=== PATIENT | male | born 1955 | race Caucasian/White ===

== ENCOUNTER 2021-09-28 17:49 | Emergency (ER) | payer MEDICARE, SELFPAY ==
--- NOTE | ~2021-09-28 | CT_ITS ---
EXAMINATION: CT brain wo con DATE: 09/28/2021 19:14 INDICATION: Altered mental state. Confusion. Weakness for one week. TECHNIQUE: Computed tomography (CT) of the head was performed without intravenous contrast. The mA wa s adjusted according to patient size. Iterative reconstruction technique was employed. Exam dose: 68 1.00 mGy-cm total exam DLP. COMPARISON: None FINDINGS: Bilateral vertebral artery, basilar artery and bilateral carotid siphon internal carotid ar rosina calcifications. No intracranial mass lesion or hemorrhage or cerebrovascular accident. No midline shift or mass effec t. Normal ventricular size. No subdural or epidural hematoma. No fracture or bone destruction of the cranial vault. Mastoid air cells and included paranasal sinuses are normally developed and aerated. IMPRESSION: Cerebral atherosclerosis No acute intracranial finding Reviewed, dictated and finalized at [facility]. Reviewed, dictated and finalized at [facility].
[2021-09-28 17:48] VITALS: BP 167/88; PULSE 94; RESP 16; TEMP 36.8; O2SAT 98
--- NOTE | 2021-09-28 18:16 | ECG_ITS ---
Measurements Intervals [place] Rate: 93 P: 24 MS: 149 QRS: 8 QRSD: 93 T: 36 QT: 351 QTc: 438 Interpretive Statements SINUS RHYTHM BASELINE ARTIFACT- I, II, III, AVR, AVF, V2-V6 NORMAL ECG Electronically Signed On 09-28-2021 20:33:18 CDT by Israel Fraser D.O.
--- NOTE | 2021-09-28 18:28 | ED.WEAKNESS ---
HPI - Weakness General Chief complaint: Weakness Stated complaint: WEAKNESS Time Seen by Provider: 09/28/21 17:58 Source: patient, EMS, RN notes reviewed and old records reviewed History of Present Illness HPI Narrative: Patient was of her by [facility] for a wellness check. Patient is in the middle of a divorce his had not heard from him in a while called [facility] catheter patient evaluated. Patient reports he has been drinking the past couple days denies any SI or HI. Reports he is here for dehydration. He does report he has been drinking wine the past couple days denies any nausea or vomiting denies any recent fevers, cough, congestion denies any focal areas of pain Related Data Home Medications Medication Instructions Recorded Confirmed amlodipine 5 mg PO DAILY 09/28/21 atorvastatin 40 mg PO DAILY 09/28/21 benzonatate 100 mg PO TID PRN 09/28/21 chlordiazepoxide mg PO 09/28/21 clonazepam 0.5 mg PO DAILY PRN 09/28/21 levothyroxine 50 mcg PO DAILY 09/28/21 ondansetron HCl [Zofran] 4 mg PO Q6H 09/28/21 tamsulosin 0.4 mg PO DAILY 09/28/21 Allergies Allergy/AdvReac Type Severity Reaction Status Date / Time Penicillins Allergy Unknown Verified 03/11/19 12:25 Review of Systems Review of Systems: CONSTITUTIONAL: Denies fever, chills, or sweats. EYES: Denies visual changes, redness, or discharge. ENT: Denies rhinorrhea, congestion, sore throat, or otalgia. CARDIOVASCULAR: Denies chest pain, palpitations, or edema. RESPIRATORY: Denies cough or dyspnea. GASTROINTESTINAL: Denies abdominal pain, nausea, vomiting, or diarrhea. GENITOURINARY: Denies dysuria or hematuria. SKIN: Denies rash or itching. MUSCULOSKELETAL: Denies back pain, joint pain, or myalgia. NEUROLOGIC: Denies headache, numbness, dizziness, or weakness. PSYCHIATRIC: Denies anxiety or depression. ROS unobtainable: Yes unobtainable due to mental status (ROS may be limited as patient appears altered possibly related EtOH) PMFSH Past Medical History Medical History Hypertension Social History Social History Alcohol intake: current Exam Narrative: GENERAL: Well-appearing, well-nourished, and in no acute distress. HEAD: Normocephalic, atraumatic. EYES: PERRLA and EOMI. ENT: Nares clear, no rhinorrhea or epistaxis. Mucous membranes moist. NECK: Supple. No masses. No JVD CHEST: Clear to auscultation. No respiratory distress. No wheezes rales or rhonchi HEART: Regular rate and rhythm. No murmur heard. Normal peripheral pulses. ABDOMEN: Soft, nontender, nondistended, normal active bowel sounds. EXTREMITIES: Normal range of motion. No edema. SKIN: Warm, dry, no rash. NEURO: No focal deficits. Alert and oriented x2, PSYCH: Normal mood and affect. Course Reevaluation(s) Reevaluation #1: Patient is resting comfortably Date: 09/28/21 Time: 23:29 Reevaluation #2: Patient's mental status is clearing however continues to slur her words. He reportedly has a history of alcohol abuse Date: 09/28/21 Time: 23:55 Reevaluation #3: Reviewed alcohol returns patient is now alert and oriented x4 denies any suicidal ideation or homicidal ideation. Reports he sees a counselor for his alcohol abuse he was able to prescribe Librium and medications he has an appointment tomorrow to be evaluated by them. Date: 09/29/21 Time: 01:21 Vital Signs Vital signs: Vital Signs Temperature 36.8 C 09/28/21 17:48 Pulse Rate 94 09/28/21 17:48 Respiratory Rate 16 09/28/21 17:48 Blood Pressure 167/88 H 09/28/21 17:48 Pulse Oximetry 98 09/28/21 17:48 Temperature 36.8 C 09/28/21 17:48 Pulse Rate 104 H 09/29/21 01:10 Respiratory Rate 17 09/29/21 01:10 Blood Pressure 174/90 H 09/29/21 01:10 Pulse Oximetry 95 09/29/21 01:10 MDM - Weakness MDM Narrative Medical decision making narrative: H&P as above, vss, pt looks clinically well, exam initia
[2021-09-28 18:44] LABS: Basophils Percent Auto 0.7 % (0.2-1.2); Eosinophils Absolute Auto 0.1 K/mm3 (0-0.3); Hematocrit 42.6 % (42.0-52.0); Hemoglobin 14.6 g/dL (14.0-18.0); Immature Granulocyte Absolute 0.01 K/mm3 (0.00-0.031); Immature Granulocyte Percent A 0.2 % (0-0.5); Lymphocytes Absolute Auto 1.93 K/mm3 (0.9-3.2); Mean Corpuscular HGB Conc 34.3 g/dl (32-36); Mean Corpuscular Hemoglobin 32.7 pg (26-34); Mean Corpuscular Volume 95.3 fl (80-100); Mean Platelet Volume 9.1 fl (7.4-10.4); Monocytes Absolute Auto 0.5 K/mm3 (0.1-0.6); Monocytes Percent Auto 10.5 % (2.6-8.5); Neutrophils Absolute Auto 2.1 K/mm3 (1.3-6.7); Neutrophils Percent Auto 44.6 % (45.5-73.1); Platelet Count Result 193 k/mm3 (150-375); Red Blood Count 4.47 M/mm3 (4.6-6.20); Red Cell Distribution Width 14.3 % (11.5-14.5); White Blood Count 4.6 K/mm3 (4.5-10.0)
[2021-09-28 19:00] LABS: Acetaminophen < 10 ug/mL (10-30); Ammonia < 9 umol/L (9-30); Ethanol 176 mg/dL (<10); Salicylate < 1.0 mg/dL (2-20)
[2021-09-28 19:01] LABS: Alanine Aminotransferase 157 U/L (4-50); Albumin Level 4.5 g/dL (3.5-5.1); Alkaline Phosphatase 80 U/L (38-126); Anion Gap 10 mmol/L (8-16); Aspartate Amino Transferase 146 U/L (17-59); Bilirubin,Total 0.9 mg/dL (0.2-1.3); Blood Urea Nitrogen 10 mg/dL (9-20); Carbon Dioxide 28 mmol/L (22-30); Chloride 105 mmol/L (98-107); Estimated CRCL calculation 102 ml/min; Estimated Glomerular Filt Rate > 60; Glucose 89 mg/dL (65-110); Potassium 4.2 mmol/L (3.4-5.0); Sodium 143 mmol/L (137-145)
[2021-09-28] MEDS: THIAMINE HCL INJ 100 MG, FOLIC ACID INJ 1 MG, MULTIVITAMINS-12 INJ VIAL 1 5 ML, MULTIVI... IV CONT (19:18)
--- NOTE | 2021-09-28 20:36 | PC.NURSE ---
Patient's brother will be taking patient home. Patient's brother is Jorge and can be reached at [phone]
[2021-09-28 20:53] VITALS: BP 168/92; PULSE 106; RESP 18; O2SAT 98
[2021-09-28 21:13] LABS: Add Urine Microscopic? YES; Appearance Urine Clear (Clear); Bilirubin Urine Negative (Negative); Blood Urine 1+ (Negative); Color Urine Yellow (Yellow); Glucose Urine UA Negative (Negative); Ketones Urine Trace mg/dL (Negative); Leukocyte Esterase Ur Negative LEU/UL (Negative); Nitrate Urine Negative (Negative); Protein Urine Negative (Negative); RBC Urine 0-2 /hpf (0-2); Specific Grav Ur 1.005 (1.001-1.035); Urobilinogen Urine Negative mg/dL (<2.0); WBC Urine 0-3 /hpf
[2021-09-28 21:28] LABS: Amphetamine Screen Urine Negative (Negative); Barbiturate Screen Urine Negative (Negative); Benzodiazepines Screen Urine Positive (Negative); Cannabinoid Screen Urine Negative (Negative); Cocaine Screen Urine Negative (Negative); Methadone Screen Urine Negative (Negative); Opiate Screen Urine Negative (Negative); Phencyclidine Screen Urine Negative (Negative)
[2021-09-28 22:09] VITALS: BP 145/83; PULSE 97; RESP 18; O2SAT 97
[2021-09-28 23:30] VITALS: PULSE 94
[2021-09-28 23:31] VITALS: BP 166/88; PULSE 94; RESP 17; O2SAT 98
--- NOTE | 2021-09-28 23:31 | PC.NURSE ---
Assumed care of pt at this time, pt is alert and orient x 4, pt requests water, repositioned, on tele monitor w/ VSS, discussed POC. Lights dimmed and fluids infusing.
[2021-09-29 00:20] VITALS: BP 172/92; PULSE 97; RESP 14; O2SAT 96
[2021-09-29 01:10] VITALS: BP 174/90; PULSE 104; RESP 17; O2SAT 95
[2021-09-29 01:18] LABS: Ethanol 23 mg/dL (<10)
== END 2021-09-29 01:52 | disposition home or self-care (01) ==
PROVIDERS: Emergency Provider Emergency Medicine; PCP Family Medicine
DX: F10.10 Alcohol abuse, uncomplicated (principal); Y90.6 Blood alcohol level of 120-199 mg/100 ml; I10 Essential (primary) hypertension; I67.2 Cerebral atherosclerosis; Z79.899 Other long term (current) drug therapy
CPT/HCPCS: 36415; 51701; 70450; 80053; 80307; 81001; 82140; 85025; 93005; 96365; 96366; 99284; J3411; J3475; J7042